=== PATIENT | female | born 1965 | race Caucasian/White ===

== ENCOUNTER → 2017-02-09 | Outpatient (CLI) | payer OTHER ==
[~2017-02-09] MED LIST: CETI10TA10 PO; PRM/45 PO; RIBO1TAB4 PO; RIZA1TAB11 PO; SERT-234 PO; SNG10 PO; TRV PO
--- NOTE | 2017-02-09 10:26 | DIAGNOSTIC IMAGING REPORT ---
SOFT TISS HEAD/NECK-THYROID HISTORY: Mass R22.1 Neck massleft superior clavicualr medial neck mass.[id number] COMPARISON: None. FINDINGS: No mass or collection by ultrasound criteria. IMPRESSION: No mass or collection by ultrasound criteria The above report was generated using voice recognition software. It may contain grammatical, syntax or spelling errors. Electronically signed by: Cam Avila M.D. 02/09/2017 10:24 AM Dictated Date/Time: 02/09/2017 10:24 AM
== END | disposition home or self-care (01) ==
LOC: C.ULTRBC 09:43
PROVIDERS: ATTEND Nurse Practitioner Family
DX: R22.1 Localized swelling, mass and lump, neck (principal)

== ENCOUNTER → 2017-02-14 | Outpatient (CLI) | payer OTHER ==
[~2017-02-14] MED LIST changes: +OPTIRAY 320 IV PRN
--- NOTE | 2017-02-14 16:35 | DIAGNOSTIC IMAGING REPORT ---
SOFT TISSUE NECK COMBO CLINICAL HISTORY: R22.1 Neck massLarge palpable soft tissue mass on exam and not v mass TECHNIQUE: Pre and postcontrast transaxial acquisition. Multiple axial reformatted images. COMPARISON STUDY: Ultrasound dated 02/09/2017 FINDINGS: Elevated salivary glands are considered unremarkable. There are no abnormal calcifications. Glottic and subglottic regions are unremarkable. The enhanced component of the study shows uniform enhancement of the salivary glands. The sternocleidomastoid musculature is symmetric. There are several small cervical nodes bilaterally measuring up to 5 mm. Marker is placed over a clinically palpable mass of the left supraclavicular region. No abnormality by CT criteria is appreciated at this site. IMPRESSION: 1. Negative study. 2. No abnormal mass by CT criteria. The above report was generated using voice recognition software. It may contain grammatical, syntax or spelling errors. Electronically signed by: Cam Avila M.D. 02/14/2017 4:33 PM Dictated Date/Time: 02/14/2017 4:30 PM
== END | disposition home or self-care (01) ==
LOC: C.CTS 15:41
PROVIDERS: ATTEND Nurse Practitioner Family
DX: R22.1 Localized swelling, mass and lump, neck (principal)